=== PATIENT | male | born 1985 | race Caucasian/White ===

== ENCOUNTER 2017-03-08 05:01 | Emergency (ER) | payer BC, MEDICAID ==
[2017-03-08 05:25] VITALS: BP 153/78
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
--- NOTE | 2017-03-10 10:18 | CR ---
Foot Comp Min 3V Lt INDICATION: pain on wght bear FINDINGS: Cortical irregularity and oblique lucency through the medial aspect of the base of the [place] metatarsal is highly suspicious for acute fracture. Exam otherwise unremarkable.
== END 2017-03-08 06:15 | disposition home or self-care (01) ==
LOC: JP.ED 05:01
DX: M84.375A Stress fracture, left foot, initial encounter for fracture (principal); Z88.0 Allergy status to penicillin; Z87.891 Personal history of nicotine dependence
CPT/HCPCS: 73630-26-LT; 73630-LT; 99284

== ENCOUNTER 2017-05-30 03:07 | Emergency (ER) | payer MEDICAID ==
[2017-05-30 03:21] VITALS: BP 162/107
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
== END 2017-05-30 03:58 | disposition home or self-care (01) ==
LOC: JP.ED 03:07
DX: S00.33XA Contusion of nose, initial encounter (principal); Z88.0 Allergy status to penicillin; Z87.891 Personal history of nicotine dependence; Y04.8XXA Assault by other bodily force, initial encounter
CPT/HCPCS: 99283; 99284